=== PATIENT | female | born 1970 | race Caucasian/White ===

== ENCOUNTER → 2017-01-15 | Outpatient (CLI) | payer BC ==
[~2017-01-15] MED LIST: ALBU1AER9; B-COTAB18 PO; BECL1AER5 NAE; CHOL1000 PO; FLUT45AE IN; IBUP-103 PO; LEVO88TA3 PO; MONT1TAB3 PO; SULF500T8 PO
--- NOTE | 2017-01-15 15:18 | MAMMOGRAPHY REPORT ---
BILATERAL DIGITAL SCREENING MAMMOGRAM TOMOSYNTHESIS WITH CAD: 01/15/2017 CLINICAL HISTORY: Routine screening. Patient has no complaints. TECHNIQUE: Breast tomosynthesis in addition to standard 2D mammography was performed. Current study was also evaluated with a Computer Aided Detection (CAD) system. COMPARISON: Comparison is made to exams dated: 06/18/2015 mammogram, 06/23/2014 mammogram, 06/23/2014 ultrasound, and 06/16/2014 mammogram - [facility]. BREAST COMPOSITION: The tissue of both breasts is heterogeneously dense, which may obscure small ma sses. FINDINGS: No suspicious masses, calcifications, or areas of architectural distortion are noted in e ither breast. There has been no significant interval change compared to prior exams. IMPRESSION: ACR BI-RADS CATEGORY 1: NEGATIVE There is no mammographic evidence of malignancy. A 1 year screening mammogram is recommended. The p atient will receive written notification of the results. Approximately 10% of breast cancers are not detected with mammography. A negative mammographic repor t should not delay biopsy if a clinically suggestive mass is present. Justine Russell M.D. ah/:01/15/2017 14:20:13 Behavioral Health Assistant: Mary Jane ASHER(Mariana)(Syed), [facility] letter sent: Normal 1/2 BI-RADS Code: ACR BI-RADS Category 1: Negative
== END | disposition home or self-care (01) ==
LOC: C.MAMM 10:34
PROVIDERS: ATTEND Obstetrics & Gynecology
DX: Z12.31 Encounter for screening mammogram for malignant neoplasm of breast (principal)

== ENCOUNTER → 2017-05-11 | Outpatient (CLI) | payer BC ==
--- NOTE | 2017-05-11 08:40 | DIAGNOSTIC IMAGING REPORT ---
ABDOMINAL ULTRASOUND, RIGHT UPPER QUADRANT HISTORY: LIVER CYST. COMPARISON: CT of the abdomen October 14, 2011, liver MRI November 13, 2015 and right upper quadrant ultrasound April 24, 2016. FINDINGS: Liver morphology is normal. Numerous anechoic hepatic lesions are again noted. These measure up to 3.4 cm and are consistent with cysts. Several cysts contain thin septations. There is no biliary ductal dilatation status post cholecystectomy. The pancreatic body is normal. The head and tail are obscured. There is no right hydronephrosis. IMPRESSION: 1. Numerous hepatic cysts, as shown on prior imaging studies. 2. No biliary ductal dilatation status post cholecystectomy. Electronically signed by: Collin Landrum M.D. 05/11/2017 8:39 AM Dictated Date/Time: 05/11/2017 8:36 AM
== END | disposition home or self-care (01) ==
LOC: C.ULTR 07:59
PROVIDERS: ATTEND Internal Medicine Gastroenterology
DX: R68.81 Early satiety (principal); R10.13 Epigastric pain; K76.89 Other specified diseases of liver

== ENCOUNTER → 2017-12-17 | Outpatient (CLI) | payer OTHER ==
--- NOTE | 2017-12-17 15:09 | MAMMOGRAPHY REPORT ---
BILATERAL DIGITAL DIAGNOSTIC MAMMOGRAM TOMOSYNTHESIS WITH CAD AND TARGETED LEFT ULTRASOUND: 12/17/2017 CLINICAL HISTORY: The patient reports focal left breast pain and an associated lump in the left breas t for approximately 2 months. TECHNIQUE: Breast tomosynthesis in addition to standard 2D mammography was performed. Current study was also evaluated with a Computer Aided Detection (CAD) system. Bilateral CC and MLO and left XCCL 2-D and tomosynthesis images and spot compression left ML tomosynthesis images were obtained. COMPARISON: Comparison is made to exams dated: 01/15/2017 mammogram, 06/18/2015 mammogram, 06/23/2014 m ammogram, 06/23/2014 ultrasound, 06/16/2014 mammogram, and 04/05/2012 ultrasound - [facility]. BREAST COMPOSITION: The tissue of both breasts is heterogeneously dense, which may obscure small mas ses. FINDINGS: A triangle marker naylor the site of the palpable lump and pain in the left upper outer quad rant. There are no suspicious masses or other suspicious mammographic abnormalities noted in this re gion. The remainder of both breasts are stable compared to prior exams, without suspicious masses, c alcifications, or areas of architectural distortion noted. An asymmetry seen within the left lateral breast on the cc view is stable dating back to at least the 2010 exam. bilateral benign-appearing c alcifications are also stable. An area of questionable distortion was seen within the left superior breast on the MLO view, which effaces on the spot compression view and is compatible with normal over lapping fibroglandular tissue. Targeted ultrasound was performed of the area of the palpable lump and pain pointed out by the patien t, in the left breast at 1:00, approximately 9 cm from the nipple. The background parenchymal echote xture is heterogeneous which reduces the sensitivity of the exam. However, there is sonographically normal tissue seen in this region, without evidence of a mass or other suspicious sonographic abnorma lity. IMPRESSION: ACR BI-RADS CATEGORY 2: BENIGN, TARGETED ULTRASOUND ACR BI-RADS CATEGORY 2: BENIGN No suspicious mammographic or sonographic abnormality at the site of the palpable lump and pain point ed out by the patient in the left breast. There is no mammographic or targeted sonographic evidence of malignancy. Recommend clinical follow-up for left breast lump and pain; any decision to biopsy sh ould be based on clinical grounds. Also recommend routine bilateral screening mammograms in one year . The patient has been verbally notified of the results. Approximately 10% of breast cancers are not detected with mammography. A negative mammographic report should not delay biopsy if a clinically suggestive mass is present. Justine Russell M.D. ah/:12/17/2017 12:02:57 Cutter Helper: [place] Mario, [facility] letter sent: Normal 1/2 BI-RADS Code: ACR BI-RADS Category 2: Benign Ultrasound BI-RADS: ACR BI-RADS Category 2: Benign
== END | disposition home or self-care (01) ==
LOC: C.MAMM 09:11
PROVIDERS: ATTEND Obstetrics & Gynecology
DX: N64.4 Mastodynia (principal)